=== PATIENT | female | born 1960 | race Caucasian/White ===

== ENCOUNTER 2022-12-19 15:03 | Inpatient (IN) | payer MEDICARE, OTHER ==
[~2022-12-19] VITALS: Ht 165.1 cm; Wt 78.5 kg
[~2022-12-19 15:03] MED LIST: ALBU90OI INH; CLOP75 PO; DULO60 PO; FLUSAL2505 IH; LISHYD2012 PO; MELO7.5 PO; METCAR500 PO; OMEP40CA12 PO; PREG150 PO; SIMV10 PO; TIOT18 IH; TRAM50 PO
[2022-12-19 18:26] VITALS: BP 162/83
--- NOTE | 2022-12-19 18:30 | NUR ---
PATIENT ARRIVED TO ROOM VIA STRETCHER, STOOD AND TRANSFERRED TO BED. UNSTEADY ON FEET, STAFF ASSISTED. PATIENT C/O CRAMPING "ALL OVER BODY". 4L O2 PLACED VIA NC TO MAINTAIN SATS >90%. RT CALLED TO SET UP HIGH FLOW AT PREVIOUS RATES RECEIVED FROM REPORT FROM [facility]. PATIENT RESPIRATINS CURRENTLY 28, AUDIBLE WHEEZES T/O. PATIENT DENIES CP/PRESSURE. DENIES N/T. SKIN DRY & INTACT T/O. ORIENTED TO ROOM & CALL LIGHT, IN REACH. WILL REPORT TO ONCOMING RN.
[2022-12-19] MEDS ORDERED: LOSA50 PO (18:49)
[2022-12-19] MEDS ORDERED: MONT10T PO (18:50)
[2022-12-19] MEDS ORDERED: CEFUROXIME SOD1.5 GM PO (18:50)
[2022-12-19] MEDS ORDERED: AMLO10 PO (18:51)
[2022-12-19 19:29] VITALS: BP 147/101
[2022-12-19 19:43] LABS: Base Excess Venous -2.2 mmol/L; Bicarbonate Venous 23.1 mmol/L (24.0-30.0); PCO2 Venous 27.9 mmHg (38-42); pH Blood Venous 7.49 (7.34-7.37)
[2022-12-19 19:51] LABS: BASOPHILS ABSOLUTE AUTO 0.03 K/mm3 (0.00-0.23); BASOPHILS PERCENT AUTO 0 % (0-2); EOSINOPHILS ABSOLUTE AUTO 0.02 K/mm3 (0.00-0.68); EOSINOPHILS PERCENT AUTO 0 % (0-6); Hematocrit 24.5 % (33.0-51.0); IMMATURE GRAN PERCENT AUTO 1 % (0-1); LYMPHOCYTES ABSOLUTE AUTO 1.14 K/mm3 (0.84-5.20); LYMPHOCYTES PERCENT AUTO 5 % (21-46); MONOCYTES ABSOLUTE AUTO 0.54 K/mm3 (0.16-1.47); MONOCYTES PERCENT AUTO 3 % (4-13); Mean Corpuscular HGB 29.2 pg (26.0-34.0); Mean Corpuscular HGB Conc 36.7 g/dL (31.5-36.5); Mean Corpuscular Volume 80 fL (80-100); Mean Platelet Volume 8.9 fL (9.1-12.4); NEUTROPHILS ABSOLUTE AUTO 19.61 K/mm3 (1.96-9.15); NEUTROPHILS PERCENT AUTO 92 % (41-73); Platelet Count 270 K/mm3 (150-400); RDW Coefficient Variation 13.1 % (11.7-14.2); RDW Standard Deviation 37.2 fL (35.1-46.3); Red Blood Cell Count 3.08 M/mm3 (3.80-5.20); White Blood Cell Count 21.44 K/mm3 (4.00-11.30)
[2022-12-19 20:12] LABS: Albumin, Blood 2.7 g/dL (3.4-5.0); Albumin/Globulin Ratio 0.7 (0.8-1.8); Bilirubin, Total 0.4 mg/dL (0.1-1.0); Bun/Creatinine Ratio 22.3 (12.0-20.0); Calcium, Blood 6.4 mg/dL (8.5-10.1); Creatinine, Blood 1.48 mg/dL (0.40-1.00); Globulin, Blood 3.7 g/dL (2.2-4.0); Magnesium, Blood 1.9 mg/dL (1.6-2.4); Total Protein, Blood 6.4 g/dL (6.4-8.2)
[2022-12-19 21:50] VITALS: BP 166/97
--- NOTE | 2022-12-19 22:00 | NUR ---
ASSUMPTION OF CARE/PATIENT UPDATE THIS RN ASSUMED CARE OF PATIENT AT 1900. REPORT TAKEN FROM RANI Dial RN. PATIENT ALERT AND ORIENTED FULLY. ABLE TO MAKE NEEDS KNOWN AND ANSWERS QUESTIONS APPROPRIATELY. MUMBLED SPEECH D/T NO TEETH. AT BEDSIDE. ADMISSION NOTED TO BE DONE BY PREVIOUS DAY SHIFT RN. BP STABLE. AFEBRILE. SR/ST WITH HR 90-110'S. S/O CHEST/ABDOMINAL CRAMPING/SPASMS. MEDICATED PER EMAR. MD AWARE. PATIENT ON AIRVO 40L 52% FIO2 WITH SPO2 >92%. WHEEZING NOTED T/O. PRN BREATHING TX GIVEN. POTASSIUM, CALCIUM, MAG REPLACED PER EMAR. PATIENT GIVEN DIET, HOWEVER WITH FLUIDS AND PUDDING THE PATIENT WAS NOTED TO COUGH WITH INTAKE. THE PATIENT ENDORSED FREQUENT COUGHING WITH PO INTAKE AT HOME WELL. THIS RN EDUCATED PATIENT AND WILL KEEP PT NPO FOR NOW. PATIENT WITH HARSH MOIST COUGH, NONPRODUCTIVE, SUCTION AT BEDSIDE. HOB ELEVATED. PATIENT CALLING APPROPRIATELY. BED IN LOWEST POSITION AND CALL LIGHT WITHIN REACH.
[2022-12-19 22:27] LABS: Source, Urine Clean Catch
[2022-12-19 22:37] LABS: Bilirubin, Urine Neg (Neg); Blood, Urine 3+ (Neg); Glucose Qualitative, Urine 3+ (Neg); Ketones, Urine Neg (Neg); Leukocyte Esterase, Urine Neg (Neg); Nitrite, Urine Neg (Neg); Protein, Urine 4+ (Neg); Urobilinogen, Urine NORM (Normal); pH, Urine 6.5 (5.0-8.0)
[2022-12-19 23:00] LABS: Appearance, Urine Clear (Clear); Color, Urine Yellow (P-Yellow)
[2022-12-19 23:01] LABS: Bacteria Few /hpf; Red Blood Cells, Urine 0-2 /hpf (0-2); Squamous Epithelial Cells Few /hpf (Few); White Blood Cells, Urine Not Seen /hpf (0-5)
[2022-12-19 23:03] LABS: Adenovirus Not Detected (NOT DETECT); Bordetella pertussis Not Detected (NOT DETECT); Chlamydophila pneumoniae Not Detected (NOT DETECT); Coronavirus 229E Not Detected (NOT DETECT); Coronavirus HKU1 Not Detected (NOT DETECT); Coronavirus NL63 Not Detected (NOT DETECT); Coronavirus OC43 Not Detected (NOT DETECT); Human Metapneumovirus Not Detected (NOT DETECT); Human Rhinovirus/Enterovirus Not Detected (NOT DETECT); Influenza A/2009-H1 Not Detected (NOT DETECT); Influenza A/H1 Not Detected (NOT DETECT); Influenza A/H3 Not Detected (NOT DETECT); Influenza B Not Detected (NOT DETECT); Mycoplasma pneumoniae Not Detected (NOT DETECT); Parainfluenza Virus 1 Not Detected (NOT DETECT); Parainfluenza Virus 2 Not Detected (NOT DETECT); Parainfluenza Virus 3 Not Detected (NOT DETECT); Parainfluenza Virus 4 Not Detected (NOT DETECT); Respiratory Syncytial Virus Not Detected (NOT DETECT); SARS-Cov-2 (COVID-19), BioFire Not Detected (NOT DETECT)
[2022-12-20 00:08] VITALS: BP 152/78
[2022-12-20 03:56] VITALS: BP 161/97
[2022-12-20 04:34] LABS: Hematocrit 22.8 % (33.0-51.0); Hemoglobin 8.4 g/dL (11.5-16.0); Mean Corpuscular HGB 29.4 pg (26.0-34.0); Mean Corpuscular HGB Conc 36.8 g/dL (31.5-36.5); Mean Corpuscular Volume 80 fL (80-100); Mean Platelet Volume 9.1 fL (9.1-12.4); Platelet Count 252 K/mm3 (150-400); RDW Coefficient Variation 13.1 % (11.7-14.2); RDW Standard Deviation 37.5 fL (35.1-46.3); Red Blood Cell Count 2.86 M/mm3 (3.80-5.20); White Blood Cell Count 18.65 K/mm3 (4.00-11.30)
[2022-12-20 04:58] LABS: Albumin, Blood 2.6 g/dL (3.4-5.0); Albumin/Globulin Ratio 0.7 (0.8-1.8); Bilirubin, Total 0.3 mg/dL (0.1-1.0); Bun/Creatinine Ratio 21.6 (12.0-20.0); Creatinine, Blood 1.67 mg/dL (0.40-1.00); Globulin, Blood 3.5 g/dL (2.2-4.0); Magnesium, Blood 2.6 mg/dL (1.6-2.4); Potassium, Blood 3.4 mmol/L (3.5-5.5); Total Protein, Blood 6.1 g/dL (6.4-8.2)
--- NOTE | 2022-12-20 05:09 | NUR ---
SHIFT SUMMARY NO ACUTE CHANGES OVERNIGHT. PATIENT GIVEN BREATHING TREATMENTS NEEDED. BP STABLE. SR/ST ON MONITOR WITH HR 90-100'S. SPO2 >92% ON AIRVO 40L AND 36% FIO2. PATIENT NOTED TO BE DYSPNEIC WITH ACTIVITY. TACHYPNEA NOTED. PATIENT CONTINUES TO BE NPO D/T COUGHING WITH ANY INTAKE. AFEBRILE. REPOSITIONS SELF IN BED FREQUENTLY. HOB ELEVATED. PUREWICK IN PLACE. CONTINENT/INCONTINENT. CONTINUES TO BE ALERT AND ORIENTED FULLY, MUMBLED/GARBLED SPEECH NOTED. CALLS APPROPRIATELY. BED IN LOWEST POSITION AND CALL LIGHT WITHIN REACH. THIS RN WILL CONTINUE TO MONITOR UNTIL SHIFT CHANGE AT 0700
[2022-12-20 08:25] VITALS: BP 140/77
[2022-12-20 12:31] VITALS: BP 136/78
[2022-12-20 16:20] VITALS: BP 159/89
[2022-12-20 17:28] LABS: Albumin, Blood 2.5 g/dL (3.4-5.0); Anion Gap 6 mmol/L (6-16); Blood Urea Nitrogen 45 mg/dL (8-24); Bun/Creatinine Ratio 23.9 (12.0-20.0); CO2, Blood 27 mmol/L (21-32); Calcium, Blood 8.1 mg/dL (8.5-10.1); Chloride, Blood 92 mmol/L (98-108); Creatinine, Blood 1.88 mg/dL (0.40-1.00); Glomerular Filtration Rate 30 (60-); Glucose, Blood 179 mg/dL (70-99); Potassium, Blood 3.3 mmol/L (3.5-5.5); Sodium, Blood 125 mmol/L (136-145)
--- NOTE | 2022-12-20 18:32 | NUR ---
ASSUMED CARE OF PT AT 0700 THIS AM. REVIEWED PLAN OF CARE WITH DR NEELY AT BEDSIDE THIS MORNING, CONTINUE DIURESIS AND NEBULIZER TX ORDERED. 4200 MLS OF URINE OUTPUT THIS SHIFT. NO ACUTE CHANGES T/O THE SHIFT. SEE DOCUMENTED VS AND ASSESSMENT. PT ABLE TO USE CALL LIGHT FOR NEEDS, CALL LIGHT IN REACH, WILL CONTINUE TO MONITOR AND GIVE REPORT TO NOC SHIFT RN.
[2022-12-20 20:08] VITALS: BP 151/77
[2022-12-21 00:40] VITALS: BP 174/80
[2022-12-21 03:57] VITALS: BP 155/78
[2022-12-21 04:34] LABS: BASOPHILS ABSOLUTE AUTO 0.01 K/mm3 (0.00-0.23); BASOPHILS PERCENT AUTO 0 % (0-2); EOSINOPHILS ABSOLUTE AUTO 0.22 K/mm3 (0.00-0.68); EOSINOPHILS PERCENT AUTO 1 % (0-6); Hematocrit 23.5 % (33.0-51.0); Hemoglobin 8.6 g/dL (11.5-16.0); IMMATURE GRAN ABSOLUTE AUTO 0.09 K/mm3 (0.00-0.10); IMMATURE GRAN PERCENT AUTO 1 % (0-1); LYMPHOCYTES ABSOLUTE AUTO 1.87 K/mm3 (0.84-5.20); LYMPHOCYTES PERCENT AUTO 12 % (21-46); MONOCYTES ABSOLUTE AUTO 1.06 K/mm3 (0.16-1.47); MONOCYTES PERCENT AUTO 7 % (4-13); Mean Corpuscular HGB 29.4 pg (26.0-34.0); Mean Corpuscular HGB Conc 36.6 g/dL (31.5-36.5); Mean Corpuscular Volume 80 fL (80-100); Mean Platelet Volume 8.9 fL (9.1-12.4); NEUTROPHILS ABSOLUTE AUTO 12.12 K/mm3 (1.96-9.15); NEUTROPHILS PERCENT AUTO 79 % (41-73); Platelet Count 251 K/mm3 (150-400); RDW Coefficient Variation 12.9 % (11.7-14.2); RDW Standard Deviation 37.1 fL (35.1-46.3); Red Blood Cell Count 2.93 M/mm3 (3.80-5.20); White Blood Cell Count 15.37 K/mm3 (4.00-11.30)
[2022-12-21 04:58] LABS: Magnesium, Blood 1.9 mg/dL (1.6-2.4)
[2022-12-21 05:03] LABS: Albumin, Blood 2.5 g/dL (3.4-5.0); Albumin/Globulin Ratio 0.7 (0.8-1.8); Bilirubin, Total 0.4 mg/dL (0.1-1.0); Bun/Creatinine Ratio 24.7 (12.0-20.0); Calcium, Blood 7.4 mg/dL (8.5-10.1); Creatinine, Blood 1.7 mg/dL (0.40-1.00); Globulin, Blood 3.8 g/dL (2.2-4.0); Phosphorus, Blood 3.8 mg/dL (2.5-4.9); Potassium, Blood 2.2 mmol/L (3.5-5.5); Total Protein, Blood 6.3 g/dL (6.4-8.2)
--- NOTE | 2022-12-21 06:21 | NUR ---
SHIFT SUMMARY A/OX3, FORGETFUL AT TIMES. DENIES CHEST PAIN/PRESSURE. TELE SR/ST 90-115. SPO2 >92% ON 3.5L NC. SBA TO BSC. K 2.2 THIS AM, PO K GIVEN AND IV K CURRENTLY RUNNING. VSS, NO ACUTE CHANGES AT THIS TIME. BED IN LOWEST POSITION WITH CALL LIGHT IN REACH. WILL CONTINUE TO MONITOR AND REPORT TO ONCOMING RN.
[2022-12-21 07:44] VITALS: BP 179/89
[2022-12-21 11:16] VITALS: BP 186/86
[2022-12-21 14:49] LABS: Albumin, Blood 2.4 g/dL (3.4-5.0); Anion Gap 6 mmol/L (6-16); Blood Urea Nitrogen 37 mg/dL (8-24); Bun/Creatinine Ratio 21.6 (12.0-20.0); CO2, Blood 27 mmol/L (21-32); Calcium, Blood 9.1 mg/dL (8.5-10.1); Chloride, Blood 93 mmol/L (98-108); Creatinine, Blood 1.71 mg/dL (0.40-1.00); Glomerular Filtration Rate 34 (60-); Glucose, Blood 140 mg/dL (70-99); Phosphorus, Blood 4.1 mg/dL (2.5-4.9); Potassium, Blood 2.8 mmol/L (3.5-5.5); Sodium, Blood 126 mmol/L (136-145)
[2022-12-21 15:59] VITALS: BP 148/76
--- NOTE | 2022-12-21 17:52 | NUR ---
SHIFT SUMMARY; ASSUMED CARE AT 0700. A/A/OX3, PLEASANT AND COOPERATIVE WITH CARE. POTASSIUM REPLACEMENT PER EMAR DURING SHIFT. REPOSITIONS SELF FREQUENTLY IN BED. SBA TO COMMODE AND RESTROOM NEEDED. VSS, 4L 02 VIA NC, NO ACUTE MEDICAL CHANGES, WILL CONTINUE TO MONITOR AND TREAT UNTIL CHANGE OF SHIFT.
[2022-12-21 20:00] VITALS: BP 142/84
[2022-12-22 00:30] VITALS: BP 125/66
[2022-12-22 04:03] LABS: BASOPHILS ABSOLUTE AUTO 0.01 K/mm3 (0.00-0.23); BASOPHILS PERCENT AUTO 0 % (0-2); EOSINOPHILS ABSOLUTE AUTO 0.29 K/mm3 (0.00-0.68); EOSINOPHILS PERCENT AUTO 3 % (0-6); Hematocrit 21.2 % (33.0-51.0); Hemoglobin 7.6 g/dL (11.5-16.0); IMMATURE GRAN ABSOLUTE AUTO 0.03 K/mm3 (0.00-0.10); IMMATURE GRAN PERCENT AUTO 0 % (0-1); LYMPHOCYTES ABSOLUTE AUTO 1.65 K/mm3 (0.84-5.20); LYMPHOCYTES PERCENT AUTO 19 % (21-46); MONOCYTES ABSOLUTE AUTO 0.63 K/mm3 (0.16-1.47); MONOCYTES PERCENT AUTO 7 % (4-13); Mean Corpuscular HGB 29.5 pg (26.0-34.0); Mean Corpuscular HGB Conc 35.8 g/dL (31.5-36.5); Mean Corpuscular Volume 82 fL (80-100); Mean Platelet Volume 8.8 fL (9.1-12.4); NEUTROPHILS PERCENT AUTO 70 % (41-73); Platelet Count 232 K/mm3 (150-400); RDW Coefficient Variation 13.3 % (11.7-14.2); RDW Standard Deviation 40.1 fL (35.1-46.3); Red Blood Cell Count 2.58 M/mm3 (3.80-5.20); White Blood Cell Count 8.81 K/mm3 (4.00-11.30)
[2022-12-22 04:27] VITALS: BP 121/74
[2022-12-22 04:34] LABS: Magnesium, Blood 1.7 mg/dL (1.6-2.4)
[2022-12-22 04:38] LABS: Anion Gap 4 mmol/L (6-16); Blood Urea Nitrogen 32 mg/dL (8-24); Bun/Creatinine Ratio 17.3 (12.0-20.0); CO2, Blood 27 mmol/L (21-32); Calcium, Blood 7.9 mg/dL (8.5-10.1); Chloride, Blood 98 mmol/L (98-108); Creatinine, Blood 1.85 mg/dL (0.40-1.00); Glomerular Filtration Rate 31 (60-); Glucose, Blood 106 mg/dL (70-99); Phosphorus, Blood 3.6 mg/dL (2.5-4.9); Potassium, Blood 3.2 mmol/L (3.5-5.5); Sodium, Blood 129 mmol/L (136-145)
--- NOTE | 2022-12-22 06:17 | NUR ---
SHIFT SUMMARY PT REMAINS A&O X4. VSS. PT DENIES CP, PRESSURE OR SOB. PT CURRENTLY ON 2 L VIA NC, SPO2 >92%. PT DOES REPORT MILD SOB W/EXERTION. PT RESTED WELL THROUGHOUT THE SHIFT. PT CONTINUES TO HAVE A PRODUCTIVE COUGH. PT UP TO USE BSC INDEPENDENTLY OR MINIMAL ASSISTANCE; VOIDING WELL. NO BM THIS SHIFT. PT REPOSITIONING INDEPENDENTLY OR MINIMAL ASSISTANCE WHEN NEEDED. PT REPORTED HAVING "PAIN UNDER L BREAST AND ABD"; PT REPORTS IT CRAMPING PAIN, THAT COMES AND GOES, RATES PAIN 7/10. THIS DID SUBSIDE AFTER A WHILE AND PT HAS YET TO REPORT IT AGAIN. NO ACUTE CHANGES THROUGHOUT SHIFT. PT CURRENTLY ASLEEP IN ROOM, CALL LIGHT IN REACH. WILL UPDATE ONCOMING RN.
[2022-12-22 07:40] VITALS: BP 157/84
[2022-12-22 15:40] VITALS: BP 128/102
--- NOTE | 2022-12-22 17:12 | NUR ---
SHIFT SUMMARY; ASSUMED CARE AT 0700. A/A/OX4 DURING SHIFT. REPOSITIONS SELF, AMBULATES TO BATHROOM WITH SBA. O2 VIA NC 2L, VSS. L/S WHEEZY T/O, BREATHING TX PER EMAR. SHOWER TODAY AND LINEN CHANGE. PLEASANT AND COOPERATIVE WITH CARE. STATUS CHANGED TO MEDICAL EARLY IN SHIFT. REPORT GIVEN TO MEDICAL FLOOR RN IN LATE AFTERNOON TO ASSUME CARE. TRANSFERRED TO MEDICAL.
[2022-12-22 17:17] VITALS: BP 109/77
--- NOTE | 2022-12-22 17:43 | NUR ---
TRANSFERED TO ROOM 355 PT TRANSFERED FROM U TO [facility]. PT ORIENTED TO ROOM. CALL LIGHT IN REACH. AFTERNOON MEDS GIVEN. PT DENIES OTHER NEEDS AT THIS TIME. SITTING IN BED EATING DINNER. CALL LIGHT IN REACH.
[2022-12-22 19:15] VITALS: BP 117/60
[2022-12-23 04:15] VITALS: BP 159/82
[2022-12-23 05:22] LABS: BASOPHILS ABSOLUTE AUTO 0.03 K/mm3 (0.00-0.23); BASOPHILS PERCENT AUTO 0 % (0-2); EOSINOPHILS ABSOLUTE AUTO 0.43 K/mm3 (0.00-0.68); EOSINOPHILS PERCENT AUTO 4 % (0-6); Hematocrit 24.4 % (33.0-51.0); Hemoglobin 8.5 g/dL (11.5-16.0); IMMATURE GRAN ABSOLUTE AUTO 0.06 K/mm3 (0.00-0.10); IMMATURE GRAN PERCENT AUTO 1 % (0-1); LYMPHOCYTES ABSOLUTE AUTO 1.82 K/mm3 (0.84-5.20); LYMPHOCYTES PERCENT AUTO 18 % (21-46); MONOCYTES PERCENT AUTO 7 % (4-13); Mean Corpuscular HGB 29.4 pg (26.0-34.0); Mean Corpuscular HGB Conc 34.8 g/dL (31.5-36.5); Mean Corpuscular Volume 84 fL (80-100); Mean Platelet Volume 8.7 fL (9.1-12.4); NEUTROPHILS ABSOLUTE AUTO 6.94 K/mm3 (1.96-9.15); NEUTROPHILS PERCENT AUTO 70 % (41-73); Platelet Count 265 K/mm3 (150-400); RDW Coefficient Variation 13.4 % (11.7-14.2); RDW Standard Deviation 41.4 fL (35.1-46.3); Red Blood Cell Count 2.89 M/mm3 (3.80-5.20); White Blood Cell Count 9.98 K/mm3 (4.00-11.30)
[2022-12-23 05:42] LABS: Anion Gap 4 mmol/L (6-16); Blood Urea Nitrogen 37 mg/dL (8-24); Bun/Creatinine Ratio 18.4 (12.0-20.0); CO2, Blood 28 mmol/L (21-32); Calcium, Blood 7.3 mg/dL (8.5-10.1); Chloride, Blood 97 mmol/L (98-108); Creatinine, Blood 2.01 mg/dL (0.40-1.00); Glomerular Filtration Rate 28 (60-); Glucose, Blood 112 mg/dL (70-99); Magnesium, Blood 1.9 mg/dL (1.6-2.4); Phosphorus, Blood 3.5 mg/dL (2.5-4.9); Potassium, Blood 3.5 mmol/L (3.5-5.5); Sodium, Blood 129 mmol/L (136-145)
--- NOTE | 2022-12-23 05:42 | NUR ---
SHIFT SUMMARY A/OX4, IND IN ROOM. DENIES CHEST PAIN/PRESSURE. TELE SR/ST 90-115. SPO2 >92% ON RA. VSS, NO ACUTE CHANGES AT THIS TIME. BED IN LOWEST POSITION WITH CALL LIGHT IN REACH. WILL CONTINUE TO MONITOR AND REPORT TO ONCOMING RN.
[2022-12-23 07:23] VITALS: BP 137/73
[2022-12-23] MEDS ORDERED: FURO40 PO (14:11)
[2022-12-23] MEDS ORDERED: LEVO750 PO (14:12)
[2022-12-23] MEDS ORDERED: LOSA50 PO (14:13)
[2022-12-23] MEDS ORDERED: POTA10T PO (14:14)
[2022-12-23] MEDS ORDERED: SENN187 PO (14:14)
--- NOTE | 2022-12-23 14:33 | NUR ---
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 SHE VERBALISED UNDERSTANDING OF WRITTEN AND VERBAL DISCHARGE INSTRUCTIONS. POWERGLIDE IV REMOVED INTACT. PT SAID SHE FEELS READY TO DISCHARGE HOME, EAGER TO LEAVE, HAS A RIDE HOME. ESCORTED VIA W/C TO MEET RIDE. NO C/O ANY PAIN, PROBLEMS OR CONCERNS PRIOR TO DISCHARGE.
== END 2022-12-23 14:35 | disposition home or self-care (01) | DRG 193 ==
LOC: PCU 15:03 → MEDS 18:13 → PCU 12-22 11:06 → MEDS 12-22 17:10
PROVIDERS: Internal Medicine; Nurse Practitioner Acute Care; ADMIT Allergy & Immunology Clinical & Laboratory Immunology
PROC: 5A0935A Assistance with Respiratory Ventilation, Less than 24 Consecutive Hours, High Flow/Velocity Cannula (ICD-10-PCS; principal; 2022-12-19)
PROC: 5A09357 Assistance with Respiratory Ventilation, Less than 24 Consecutive Hours, Continuous Positive Airway Pressure (ICD-10-PCS; 2022-12-19)
DX: J18.9 Pneumonia, unspecified organism (principal); G92.8 Other toxic encephalopathy; J96.01 Acute respiratory failure with hypoxia; N17.9 Acute kidney failure, unspecified; R65.10 Systemic inflammatory response syndrome (SIRS) of non-infectious origin without acute organ dysfunction; E87.1 Hypo-osmolality and hyponatremia; J44.0 Chronic obstructive pulmonary disease with (acute) lower respiratory infection; J44.1 Chronic obstructive pulmonary disease with (acute) exacerbation; I50.9 Heart failure, unspecified; K74.60 Unspecified cirrhosis of liver; R77.8 Other specified abnormalities of plasma proteins; F15.10 Other stimulant abuse, uncomplicated; I11.0 Hypertensive heart disease with heart failure; I27.21 Secondary pulmonary arterial hypertension; I34.0 Nonrheumatic mitral (valve) insufficiency; B19.20 Unspecified viral hepatitis C without hepatic coma; F31.9 Bipolar disorder, unspecified; E87.6 Hypokalemia; E83.51 Hypocalcemia; E83.42 Hypomagnesemia; G47.33 Obstructive sleep apnea (adult) (pediatric); Z20.822 Contact with and (suspected) exposure to COVID-19; K59.00 Constipation, unspecified; M79.7 Fibromyalgia; E78.5 Hyperlipidemia, unspecified; F41.9 Anxiety disorder, unspecified; K21.9 Gastro-esophageal reflux disease without esophagitis; F17.210 Nicotine dependence, cigarettes, uncomplicated; Z91.148 Patient's other noncompliance with medication regimen for other reason; Z88.1 Allergy status to other antibiotic agents; Z79.899 Other long term (current) drug therapy; Z99.81 Dependence on supplemental oxygen; Z86.73 Personal history of transient ischemic attack (TIA), and cerebral infarction without residual deficits; Z98.890 Other specified postprocedural states; Z79.52 Long term (current) use of systemic steroids; Z79.51 Long term (current) use of inhaled steroids; Z71.51 Drug abuse counseling and surveillance of drug abuser; Z71.6 Tobacco abuse counseling
CPT/HCPCS: 0202U; 36415; 71045; 74018; 80053; 80069; 81001; 82140; 82330; 82550; 82803; 83036; 83735; 83880; 84100; 84145; 84484; 85025; 85027; 87040; 94640; 94664; 94760; 94762; 97116; 97161; 97166; A9270; C1751; C8929; J0612; J1644; J1940; J1956; J3010; J3475; J3480; J7050; Q9957